=== PATIENT | male | born 1980 | race American Indian/Alaskan Native ===

== ENCOUNTER 2020-05-21 20:19 | Emergency (ER) | payer SELFPAY ==
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
--- NOTE | 2020-05-21 21:11 | Cat Scan Report ---
FACIAL CT 05/21/2020 HISTORY: Trauma FINDINGS: CT images of the facial bones were obtained. Images are evaluated in the axial, coronal, an d sagittal plane. There are fractures involving the orbits and maxilla bilaterally. On the right, there is a markedly comminuted fractures of the right orbital floor which extends from the inferior orbital rim to nearly the posterior aspect of the orbit. Downward displacement orbital c ontents is present over a broad portion of the orbital floor. Intraorbital and periorbital soft tissu e edema and air densities are present. Some mucosal thickening is present in the maxillary sinus. The re also appears to be some medial displacement of the lamina papyracea. On the left, there is fracture of the anterior wall maxillary sinus, which extends into the orbital f michael, with minimal displacement. Nasal bones are intact. IMPRESSION: Considerable bilateral facial structures above, more prominent on the right. Bilateral or bital floor fractures. All CT scans at this location are performed using dose reduction to ALARA by means of automated expos ure control. Signer Name: Azam Gallegos MD Signed: 05/21/2020 9:06 PM Workstation Name: [id number]
[2020-05-21] MEDS ORDERED: LIDOCAINE 1%/EPINEPHRINE 1:100,000 VIAL (20 ML) INFILTRATI ONE (21:43)
[2020-05-21] MEDS ORDERED: DIPHtheria,PERTUSSIS(ACELL),TETANUS VACCINE/PF 0.5 ML VIAL IM ONE (21:43)
[2020-05-21] MEDS ORDERED: oxyCODONE /ACETAMINOPHEN 5-325MG TAB PO ONE (21:43)
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
[2020-05-21 23:54] VITALS: BP 156/93
== END 2020-05-22 00:11 | disposition other institution (70) ==
LOC: ED 20:19
DX: S02.31XA Fracture of orbital floor, right side, initial encounter for closed fracture (principal); S01.511A Laceration without foreign body of lip, initial encounter; S02.40CA Maxillary fracture, right side, initial encounter for closed fracture; Y08.89XA Assault by other specified means, initial encounter; Y93.89 Activity, other specified; Y92.89 Other specified places as the place of occurrence of the external cause; Y99.8 Other external cause status
CPT/HCPCS: 70450; 70486; 72125; 90471; 90715